=== PATIENT | female | born 1945 | race Caucasian/White ===

== ENCOUNTER 2016-11-28 17:52 | Emergency (ER) | payer OTHER ==
[~2016-11-28] VITALS: Ht 167.6 cm; Wt 86.4 kg
[~2016-11-28 17:52] MED LIST: ARMO120T PO; BACL10TA PO; ESTR0.5T PO; FLUO40CA PO; HYDR-3533 PO; METO50TA PO; NAPR500 PO; ZOLP10TA3 OR
[2016-11-28 17:54] VITALS: BP 168/100; PULSE 71; RESP 15; TEMP 98; O2SAT 93; O2SAT 97
[2016-11-28] MEDS ORDERED: METO50TA PO (18:14)
[2016-11-28] MEDS ORDERED: NATU16.2 PO (18:14)
[2016-11-28] MEDS ORDERED: ASPI325T PO (18:14)
[2016-11-28] MEDS ORDERED: [UNRECOGNIZED DRUG - OTHER] PO (18:14)
[2016-11-28] MEDS ORDERED: ZOLP10TA3 PO (18:14)
[2016-11-28] MEDS ORDERED: HTN MED PO (18:14)
--- NOTE | 2016-11-28 19:28 | RADHPO ---
EXAM DATE/TIME: 11/28/2016 18:39 [facility] COMPARISON: No previous studies available for comparison. INDICATIONS : Fell today, striking head on ground. RADIATION DOSE: 55.59 CTDIvol (mGy) MEDICAL HISTORY : Hypertension. Diabetes. SURGICAL HISTORY : Hysterectomy. Brain aneurysm clipping. ENCOUNTER: Initial ACUITY: 1 day PAIN SCALE: 4/10 LOCATION: Left cranial TECHNIQUE: Multiple contiguous axial images were obtained of the head. Using automated exposure control and adj ustment of the mA and/or kV according to patient size, radiation dose was kept as low as reasonably a chievable to obtain optimal diagnostic quality images. FINDINGS: There is no acute hemorrhage, acute infarct, mass effect or extra-axial fluid collections. A small s ubgaleal hematoma is noted along the left frontal skull. An aneurysm clip is noted in the expected r egion of the basilar artery. Right temporal craniectomy is noted. Minimal subcortical white matter small vessel ischemic changes are noted bilaterally. The ventricles, sulci cisterns are normal. CONCLUSION: 1. Minimal subcortical white matter small vessel ischemic changes bilaterally. 2. No acute infarct, acute hemorrhage, mass effect or extra-axial fluid collections. 3. Small subgaleal hematoma along the left frontal skull. Nayan Pratt MD on November 28, 2016 at 19:09 Board Certified Radiologist. This report was verified electronically.
--- NOTE | 2016-11-28 19:33 | RADHPO ---
EXAM DATE/TIME: 11/28/2016 18:39 [facility] COMPARISON: No previous studies available for comparison. INDICATIONS : Fell today, striking head on ground. RADIATION DOSE: 26.10 CTDIvol (mGy) MEDICAL HISTORY : Hypertension. Diabetes. SURGICAL HISTORY : Hysterectomy. Brain aneurysm clipping. ENCOUNTER: Initial ACUITY: 1 day PAIN SCALE: 4/10 LOCATION: Neck TECHNIQUE: Volumetric scanning of the cervical spine was performed. Multiplanar reconstructions in the sagittal, coronal and oblique axial planes were performed. Using automated exposure control and adjustment o f the mA and/or kV according to patient size, radiation dose was kept as low as reasonably achievable to obtain optimal diagnostic quality images. FINDINGS: Cervical spondylosis is noted from C3 through T1. There is grade I anterolisthesis of C7 in relation to T1. Most significant disc space narrowing is noted at C5-6 and C6-7. Mild bilateral foraminal n arrowing is noted at C3-4, C5-6 and C6-7. No significant spinal stenosis is noted. No acute fractur e or prevertebral soft tissue swelling is noted. The bony relationship and alignment between C1 and C2 is well maintained. CONCLUSION: 1. No acute fracture or prevertebral soft tissue swelling. 2. Diffuse cervical spondylosis from C3 through T1. 3. Grade I anterolisthesis of C7 in relation to T1. 4. Mild bilateral foraminal narrowing at C3-4, C5-6 and C6-7. Nayan Pratt MD on November 28, 2016 at 19:13 Board Certified Radiologist. This report was verified electronically.
--- NOTE | 2016-11-28 19:38 | RADHPO ---
EXAM DATE/TIME: 11/28/2016 19:03 [facility] COMPARISON: No previous studies available for comparison. INDICATIONS : Left hand pain, after tripping over garden hose. MEDICAL HISTORY : None. SURGICAL HISTORY : None. ENCOUNTER: Initial ACUITY: 1 day PAIN SCORE: 2/10 LOCATION: Left hand FINDINGS: There is no acute fracture or dislocation of the left hand. Mild osteoarthritis is noted involving t he 1st carpal metacarpal joint. Bone mineralization is normal. CONCLUSION: 1. No acute fracture or dislocation. 2. 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 Nayan Pratt MD on November 28, 2016 at 19:12 Board Certified Radiologist. This report was verified electronically.
--- NOTE | 2016-11-28 20:22 | PD ---
HPI Chief Complaint: Fall Time Seen by Provider: 17:20 Travel History International Travel<30 days: No Contact w/Intl Traveler<30days: No Traveled to known affect area: No History of Present Illness HPI 71-year-old female presents to the emergency department after sustaining a ground-level fall injuring the left side of her head. Patient reports she was in her garden and tripped over a garden hose falling forward hitting head and left-sided body on the ground. She denies loss of consciousness. She is not anticoagulated. She complains of mild nonradiating pain of the left forehead, left hand, left knee, severity 4 out of 10. She is ambulatory. She has no focal neuro deficits. She denies chest pain, shortness breath, abdominal pain, nausea, vomiting, severe headache, change of vision. [facility] Past Medical History Narrative Medical Significant for previous brain aneurysm. Hypertension. Asthma: No COPD: No Diabetes: Yes (DIET CONTROLLED) Patient Takes Glucophage: No GERD: Yes Hypertension: Yes Respiratory: Yes Thyroid Disease: Yes Tetanus Vaccination: > 5 Years Influenza Vaccination: Yes ?: Not Menopausal: Yes Past Surgical History Hysterectomy: Yes Other Surgery: Yes (BRAIN ANEURYSM) Social History Alcohol Use: Yes (3-4 TIMES PER WEEK) Tobacco Use: No Substance Use: No Allergies-Medications (Allergen,Severity, Reaction): Coded Allergies: Contrast Media (Verified Allergy, Severe, THROAT CLOSES, 11/28/16) Reported Meds & Prescriptions Reported Meds & Active Scripts Active Reported Nature-Throid (Thyroid) 16.25 Mg Tab Unknown Dose PO DAILY [Nelrexon] 4.5 Mg PO DAILY Zolpidem (Zolpidem Tartrate) 10 Mg Tab 10 Mg PO HS PRN [Htn Med] Unknown Dose PO BID Metoprolol Tartrate 50 Mg Tab 50 Mg PO BID Aspirin 325 Mg Tab 325 Mg PO DAILY Review of Systems Except as stated in HPI: all other systems reviewed are Neg Physical Exam Narrative GENERAL: Alert, oriented, well-appearing elderly female. SKIN: Abrasion and scalp hematoma to left forehead. Abrasion to left knee. Multiple abrasions to left hand. HEAD: Normocephalic. Frontal scalp hematoma. EYES: Pupils equal and round. No scleral icterus. No injection or drainage. No nystagmus ENT: No nasal bleeding or discharge. Mucous membranes pink and moist. NECK: Trachea midline. No JVD. No midline cervical spine pain. CARDIOVASCULAR: Regular rate and rhythm. No murmur appreciated. RESPIRATORY: No accessory muscle use. Clear to auscultation. Breath sounds equal bilaterally. No rib tenderness. GASTROINTESTINAL: Abdomen soft, non-tender, nondistended. Hepatic and splenic margins not palpable. MUSCULOSKELETAL: No obvious deformities. No clubbing. No cyanosis. No edema. Abrasion to left knee. Abrasions to left hand. NEUROLOGICAL: Awake and alert. No obvious cranial nerve deficits. Motor grossly within normal limits. Normal speech. PSYCHIATRIC: Appropriate mood and affect; insight and judgment normal. Data Data Last Documented VS Vital Signs Date Time Temp Pulse Resp B/P Pulse Ox O2 Delivery O2 Flow Rate FiO2 11/28/16 17:54 98.0 71 15 168/[address] Brain W/O Iv Contrast(Rout) (11/28/16 ) Ct Cerv Spine W/O Contrast (11/28/16 ) Hand, Complete ([id number]) (11/28/16 ) [facility] Medical Decision Making Medical Screen Exam Complete: Yes Emergency Medical Condition: Yes Medical Record Reviewed: Yes Differential Diagnosis Scalp hematoma, intracranial hemorrhage, cervical spine fracture, left hand fracture, abrasions, contusions Narrative Course 71-year-old female sustained a ground-level fall after tripping on a hose in her garden. She reports she fell onto the left side of her body hitting the left side of her head on the ground. She did not lose consciousness. She remembers the entire event. She was ambulatory after the event. She has a scalp hematoma, abrasion to left knee, abrasions to left hand. She complains of only mild pain at the site of the scalp hematoma in the left hand. She has a normal neuro exam. She is accompanied by her . CT of the brain, C- spine and x-ray of left hand pending CT of the brain: No acute intracranial abnormality. Small subgaleal hematoma of scalp. CT of cervical spine: No acute fracture X-ray of the left hand: No fracture Discussed head injury precautions with patient and . They agree to return should patient develop confusion, severe headache, visual changes, vomiting, imbalance or loss of coordination. Otherwise patient will follow up with her primary care doctor in 2 days for recheck All wounds were cleansed and antibiotic ointment applied by nursing staff. Tetanus updated Diagnosis Primary Impression: Hematoma of frontal scalp Qualified Code: S00.03XA - Hematoma of frontal scalp, initial encounter Additional Impression: Abrasions of multiple sites Referrals: Primary Care Physician Additional Instructions: Return if you develop confusion, severe headache, visual changes, vomiting, imbalance or loss of coordination. Otherwise patient will follow up with her primary care doctor in 2 days for recheck Disposition: DISCHARGE HOME Condition: Stable Lizzie Roland November 28, 2016 20:22
[2016-11-28] MEDS ORDERED: TETANUS/DIPHTHERIA TOXOID ADULT 0.5 ML VIAL IM ONE (20:30)
== END 2016-11-28 20:31 | disposition home or self-care (01) ==
LOC: PHEFT 17:52
DX: S00.03XA Contusion of scalp, initial encounter (principal); S80.212A Abrasion, left knee, initial encounter; S60.512A Abrasion of left hand, initial encounter; E11.9 Type 2 diabetes mellitus without complications; I10 Essential (primary) hypertension; K21.9 Gastro-esophageal reflux disease without esophagitis; W01.0XXA Fall on same level from slipping, tripping and stumbling without subsequent striking against object, initial encounter; Y92.096 Garden or yard of other non-institutional residence as the place of occurrence of the external cause; Z23 Encounter for immunization
CPT/HCPCS: 70450; 72125; 73130; 90471; 90714